=== PATIENT | male | born 1940 | race Two or more races ===

== ENCOUNTER → 2017-06-15 | Outpatient (CLI) | payer OTHER ==
--- NOTE | 2017-06-15 16:22 | RADIOLOGY REPORT (SQ) ---
EXAM DESCRIPTION: U/S RETROPERITON (RENAL/AORTA) COMPLETED DATE/TIME: 06/15/2017 10:16 am REASON FOR STUDY: CHRONIC KIDNEY DISEASE, STAGE 3 (N18.3) N18.3 CHRONIC KIDNEY DISEASE, STAGE 3 (MO DERATE) COMPARISON: November 2015 TECHNIQUE: Dynamic and static grayscale images acquired of the kidneys and bladder and recorded on P ACS. Additional selected color Doppler and spectral images recorded. LIMITATIONS: None. FINDINGS: RIGHT KIDNEY: 9.0 cm in length Normal echogenicity. No solid or suspicious masses. M ultiple renal cysts are again identified. No hydronephrosis. No calcifications. LEFT KIDNEY: 11.6 cm in length. Normal echogenicity. No solid or suspicious masses. Multiple re nal cysts are again identified. No hydronephrosis. No calcifications. BLADDER: No masses. OTHER FINDINGS: No other significant finding. IMPRESSION: Bilateral renal cyst as noted above. No hydronephrosis is seen. Other findings as note d above. TECHNICAL DOCUMENTATION: JOB ID: [id number] [employer]- All Rights Reserved
== END ==
LOC: RAD 08:59
PROVIDERS: ATTEND Internal Medicine
DX: N18.3 Chronic kidney disease, stage 3 (moderate) (principal)
CPT/HCPCS: 76770

== ENCOUNTER 2019-07-30 11:11 | Emergency (ER) | payer MEDICARE, OTHER ==
[2019-07-30 11:32] LABS: ABSOLUTE EOSINOPHILS # (AUTO) 0.1 10^3/uL (0.0-0.6); ABSOLUTE LYMPHOCYTES (AUTO) 0.9 10^3/uL (0.5-4.7); ABSOLUTE MONOCYTES (AUTO) 0.4 10^3/uL (0.1-1.4); ABSOLUTE NEUT (AUTO) 6.1 10^3/uL (1.7-8.2); BASOPHILS % (AUTO) 0.6 % (0-2); EOSINOPHILS % (AUTO) 0.9 % (0-6); LYMPHOCYTES % (AUTO) 12.2 % (13-45); MEAN CORPUSCULAR HEMOGLOBIN 28.2 pg (27.0-33.4); MEAN CORPUSCULAR HGB CONC 34.2 g/dL (32.0-36.0); MEAN CORPUSCULAR VOLUME 83 fl (80-97); MONOCYTES % (AUTO) 4.7 % (3-13); PLATELET COUNT 143 10^3/uL (150-450); RED BLOOD COUNT 4.97 10^6/uL (4.35-5.55); RED CELL DISTRIBUTION WIDTH 14.6 % (11.5-14.0); SEGMENTED NEUTROPHILS % (AUTO) 81.6 % (42-78); TOTAL CELLS COUNTED % (AUTO) 100 %; WHITE BLOOD COUNT 7.5 10^3/uL (4.0-10.5)
[2019-07-30 12:00] LABS: ALKALINE PHOSPHATASE 104 U/L (38-126); ANION GAP 11 (5-19); ASPARTATE AMINO TRANSFERASE 21 U/L (17-59); BILIRUBIN,DIRECT 0.1 mg/dL (0.0-0.4); BILIRUBIN,TOTAL 0.7 mg/dL (0.2-1.3); BLOOD UREA NITROGEN 20 mg/dL (7-20); CALCIUM 9.3 mg/dL (8.4-10.2); CARBON DIOXIDE 25 mmol/L (22-30); CHLORIDE 107 mmol/L (98-107); CREATINE KINASE 42 U/L (55-170); GLUCOSE 172 mg/dL (75-110); TOTAL PROTEIN 7.8 g/dL (6.3-8.2)
[2019-07-30 12:10] LABS: CREATINE KINASE MB 0.73 ng/mL (<4.55)
[2019-07-30 12:20] LABS: TROPONIN I < 0.012 ng/mL
--- NOTE | 2019-07-30 12:43 | ER Document Report ---
ED General - General Chief Complaint: Dizziness Stated Complaint: WEAKNESS/VOMITING/DIZZY Time Seen by Provider: 07/30/19 12:41 Primary Care Provider: NELDA ROSE MD [Primary Care Provider] - Follow up as needed Mode of Arrival: Ambulatory Information source: Patient TRAVEL OUTSIDE OF THE [place] IN LAST 30 DAYS: No - HPI Notes: [age] male H0 longstanding history of noncontributory work-up for "dizzy spells which usually last a few minutes at a time and involve sensation of room spinning and there is sometimes imbalance if he is if it is while standing but periods can onset while at rest he says not worsened by exertion he denies any passing out or near passing out he denies any double vision he denies any focal clumsiness with the extremities denies any falls at all. has not noticed any other speech changes or motor changes over time. No weight loss or weight gain. He denies any chest pain. Today he says that the reason he really presented was that his dizzy spell after being on the treadmill this morning for 20 minutes walking lasted much longer than usual minutes. Today it was 45 minutes duration of dizziness and he actually vomited twice. This resolved on its own and again said no focal symptoms were noticed he did not have any of the above symptoms consistent with a posterior circulation compromise,. He denies any other difficulty sleeping or laying flat no other decline in exertion he has been walking on the treadmill about that same amount a few times a week. 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 He also says he had a work-up at [facility] neurology with inpatient testing he does not think its tilt table or EEG but where he wore goggles and they ultimately were unable to find any specific reason for these e pisodes. He said he is never had the actual symptoms when he is seeing a physician. Also has a history of bypass with graft 2015, CAD status post balloon HUTCHINS and stent times X2 2000 status post - Related Data Allergies/Adverse Reactions: Penicillins Allergy (Verified 07/30/19 11:55) Home Medications: Levothyroxine. Omeprazole. Atorvastatin. Lisinopril. Tresiba. Victoza Past Medical History - General Information source: Patient - Social History Smoking Status: Never Smoker Frequency of alcohol use: None Drug Abuse: None Family History: Reviewed & Not Pertinent - Dad did have a history of heart disease late in life. Patient has suicidal ideation: No Patient has homicidal ideation: No - Past Medical History Cardiac Medical History: Reports: Hx Hypercholesterolemia, Hx Hypertension Endocrine Medical History: Reports: Hx Diabetes Mellitus Type 2 GI Medical History: Reports: Hx Gastroesophageal Reflux Disease Past Surgical History: Reports: Hx Appendectomy, Hx Cardiac Catheterization, Hx Cardiac Surgery - quadruple bypass, stents, Hx Cholecystectomy, Hx Orthopedic Cuellar rgery - bilateral shoulder Review of Systems - Review of Systems Constitutional: No symptoms reported EENT: No symptoms reported Cardiovascular: No symptoms reported Respiratory: No symptoms reported Gastrointestinal: No symptoms reported Genitourinary: No symptoms reported Male Genitourinary: No symptoms reported Musculoskeletal: No symptoms reported Skin: No symptoms reported Hematologic/Lymphatic: No symptoms reported Neurological/Psychological: No symptoms reported Physical Exam - Vital signs Vitals: Temp Pulse Resp BP Pulse Ox 97.8 F 74 14 143/80 H 100 07/30/19 11:13 07/30/19 11:13 07/30/19 11:13 07/30/19 11:13 07/30/19 11:13 Interpretation: Normal - General General appearance: Appears well, Alert - HEENT Head: Normocephalic, Atraumatic Eyes: Normal Pupils: PERRL - Respiratory Respiratory status: No respiratory distress Chest status: Nontender Breath sounds: Normal Chest palpation: Normal - Cardiovascular Rhythm: Regular Heart sounds: Normal auscultation Murmur: No - Abdominal Inspection: Normal Distension: No distension Bowel sounds: Normal Tenderness: Nontender Organomegaly: No organomegaly - Back Back: Normal, Nontender - Extremities General upper extremity: Normal inspection, Nontender, Normal color, Normal ROM, Normal temperature General lower extremity: Normal inspection, Nontender, Normal color, Normal ROM, Normal temperature, Normal weight bearing. No: Mary Jo's sign - Neurological Neuro grossly intact: Yes Cognition: Normal Orientation: AAOx4 [place] Coma Scale Eye Opening: Spontaneous [place] Coma Scale Verbal: Oriented [place] Coma Scale Motor: Obeys Commands [place] Coma Scale Total: 15 Speech: Normal Motor strength normal: LUE, RUE, LLE, RLE Sensory: Normal - Psychological Associated symptoms: Normal affect, Normal mood - Skin Skin Temperature: Warm Skin Moisture: Dry Skin Color: Normal Course - Re-evaluation Re-evalutation: 12/10/19 23:28 Continued to be nonfocal and intact on serial neurologic checks. Orthostatics after 1 L LR were negative. Patient and and I discussed the work-up here and that he had had 2 serial troponins and EKGs over a few hours, and that here was reassured to find no neurologic deficits, and that this possibly could have been secondary to orthostasis, still I was worried about there potentially being cardiac etiology given his significant history of arterial disease and the fact that it was after the treadmill and lasting 45 minutes. It did not seem like it was necessarily exertional though, not worsened by exertion. Therefore we discussed that we cannot rule out that he is not at risk definitely of having a heart attack we can only say that he at least at that time of the event had not had any damage to his heart muscle, or heart attack but that it did not necessarily mean he did not have heart disease that was causing that symptom. Therefore we discussed watching for any exertional symptoms like weakness shortness of breath chest pain or other pain diaphoresis nausea vomiting. Also discussed more neurologic etiology he himself was persistent that [facility] had worked him up very fully multiple times for the symptoms but we also noted that each. Of work-up he never actually had the symptoms therefore even though he had had extensive studies and imaging it was never during the time of symptoms therefore I suggested he return or seek medical attention if he did have return symptoms - Vital Signs Vital signs: Temp Pulse Resp BP Pulse Ox 98.9 F 78 19 139/72 H 100 07/30/19 20:12 07/30/19 20:12 07/30/19 20:12 07/30/19 20:12 07/30/19 20:12 - Laboratory Result Diagrams: 07/30/19 11:18 07/30/19 11:18 Laboratory results interpreted by me: 07/30/19 07/30/19 07/30/19 11:18 11:18 12:41 RDW 14.6 H Plt Count 143 L Lymph % (Auto) 12.2 L Seg Neutrophils % 81.6 H Creatinine 1.44 H Est GFR ( Amer) 58 L Est GFR (MDRD) Non-Af 48 L Glucose 172 H POC Glucose 164 H Creatine Kinase 42 L Urine Protein Urine Glucose (UA) 07/30/19 14:24 RDW Plt Count Lymph % (Auto) Seg Neutrophils % Creatinine Est GFR ( Amer) Est GFR (MDRD) Non-Af Glucose POC Glucose Creatine Kinase Urine Protein 100 H Urine Glucose (UA) 50 H - EKG Interpretation by Me Additional EKG results interpreted by me: 07/30/19 23:33 Reviewed both initial and EKG prior to discharge. Sinus rate 70s. Q. waves inferior leads and are unchanged from these 2 EKGs and from his 1 prior to this. Visit. Otherwise voltage within normal limits axis within normal limits. All other intervals within normal normal limits besides some slight delay conduction ventricular 07/30/19 23:36 Discharge - Discharge Clinical Impression: Dizziness, Renal insufficiency, mild Condition: Good Disposition: HOME, SELF-CARE Additional Instructions: Today you were seen in the emergency department after a period of dizziness that took place for about 45 minutes after walking on the treadmill. We have watched you for a number of hours in the emergency department you did not have return of symptoms and your neurologic exam was intact and remained intact during this time. As well. I have printed out your lab work here for you. We have done 2 sets of troponins over the last few hours. And we have performed 2 EKGs since you have been here. These are remained unchanged which is reassuring. I do not have any prior labs of years for comparison but you do have some very very mild kidney insufficiency meaning they are strained a little to filter, but I think this is in the setting of very mild dehydration. Therefore I would like you to follow-up with your primary care doctor within the next few days or at least call and talk to him about scheduling follow-up given the creatinine and the GFR being slightly low on your labs today on your ER visit. Please watch for any return of your symptoms and seek medical attention if you have chest pain shortness of breath particularly any exertional symptoms. Watch for any clum siness in your arms legs or any problems with ambulation and balance. Any vision change any headache Referrals: NELDA ROSE MD [Primary Care Provider] - Follow up as needed
--- NOTE | 2019-07-30 12:49 | EKG REPORT ---
SEVERITY:- ABNORMAL ECG - SINUS RHYTHM FIRST DEGREE AV BLOCK INFEROPOSTERIOR INFARCT LATERAL LEADS ARE ALSO INVOLVED BORDERLINE PROLONGED QT INTERVAL : Confirmed by: Carlo Thurston MD 30-Jul-2019 12:48:58
[2019-07-30] MEDS ORDERED: RINGERS SOLUTION,LACTATED 1,000 ML IV ONE (14:14)
[2019-07-30 14:42] LABS: APPEARANCE,URINE CLEAR; BILIRUBIN,URINE NEGATIVE (NEGATIVE); COLOR,URINE YELLOW; GLUCOSE, URINE 50 mg/dL (NEGATIVE); KETONES,URINE NEGATIVE (NEGATIVE); LEUKOCYTE ESTERASE,URINE NEGATIVE (NEGATIVE); NITRITE,URINE NEGATIVE (NEGATIVE); PROTEIN,URINE 100 mg/dL (NEGATIVE); URINE SPECIFIC GRAVITY 1.011; UROBILINOGEN,URINE NEGATIVE mg/dL (<2.0)
--- NOTE | 2019-07-30 17:44 | EKG REPORT ---
SEVERITY:- ABNORMAL ECG - SINUS RHYTHM NONSPECIFIC INTRAVENTRICULAR CONDUCTION DELAY INFERIOR INFARCT, AGE INDETERMINATE : Confirmed by: Carlo Thurston MD 30-Jul-2019 17:44:23
[2019-07-30 20:13] VITALS: BP 139/72
== END 2019-07-30 20:13 | disposition home or self-care (01) ==
LOC: ER 11:11
DX: N28.9 Disorder of kidney and ureter, unspecified (principal); R42 Dizziness and giddiness; R53.1 Weakness; R11.10 Vomiting, unspecified; I10 Essential (primary) hypertension; E11.9 Type 2 diabetes mellitus without complications
CPT/HCPCS: 93005; 36415; 82553; 82962; 82550; 85025; 80053; 81001; 84484; 93010; J7120; 96360; 99284

== ENCOUNTER → 2020-08-17 | Outpatient (CLI) | payer MEDICARE ==
--- NOTE | 2020-08-17 13:42 | RADIOLOGY REPORT (SQ) ---
EXAM DESCRIPTION: NM LUNG PERFUSION SCAN IMAGES COMPLETED DATE/TIME: 08/17/2020 1:26 pm REASON FOR STUDY: PLEURISY R09.1 PLEURISY COMPARISON: 08/17/2020 radiograph RADIONUCLIDE AND DOSE: 5.3 millicuries TC-99m MAA The route of agent administration: Intravenous TECHNIQUE: Eight views of the lungs acquired following injection of MAA. LIMITATIONS: None. FINDINGS: PERFUSION: Moderate-sized area of wedge-shaped perfusion defect within the right middle lo be best seen on the KAZAKH projection. Additional smaller non wedge-shaped area of perfusion defect not ed within the right lung base. Left lung is unremarkable with homogeneous activity and no perfusiona l defect. OTHER: No other significant finding. IMPRESSION: Moderate sized wedge-shaped perfusional defect within the right middle lobe. Additional smaller non wedge-shaped areas noted within the right lung base. Findings moderately suspicious for pulmonary embolus (Intermediate probability 20-79%). Findings discussed with Dr. Ugarte at the time of interpretation. TECHNICAL DOCUMENTATION: JOB ID: [id number] 2010 [employer]- All Rights Reserved Reading location - IP/workstation name: [email or web address]
--- NOTE | 2020-08-17 13:50 | RADIOLOGY REPORT (SQ) ---
EXAM DESCRIPTION: CHEST 2 VIEWS IMAGES COMPLETED DATE/TIME: 08/17/2020 1:09 pm REASON FOR STUDY: PLEURISY COMPARISON: None. EXAM PARAMETERS: NUMBER OF VIEWS: two views TECHNIQUE: Digital Frontal and Lateral radiographic views of the chest acquired. RADIATION DOSE: NA LIMITATIONS: none FINDINGS: LUNGS AND PLEURA: Small left pleural effusion with associated basilar opacity, likely atel ectasis. No pneumothorax. No additional focal consolidation. MEDIASTINUM AND HILAR STRUCTURES: No masses or contour abnormalities. HEART AND VASCULAR STRUCTURES: Heart normal size. No evidence for failure. BONES: Sternotomy changes. No acute findings. HARDWARE: Sternotomy hardware and mediastinal surgical clips. Cholecystectomy clips. OTHER: No other significant finding. IMPRESSION: 1. Small left pleural effusion and basilar atelectasis. 2. Prior sternotomy. TECHNICAL DOCUMENTATION: JOB ID: [id number] 2010 [employer]- All Rights Reserved Reading location - IP/workstation name: [email or web address]
== END ==
LOC: RAD 12:35
PROVIDERS: ATTEND Internal Medicine
DX: J90 Pleural effusion, not elsewhere classified (principal)
CPT/HCPCS: 71046; 78580; A9540; Q9969